=== PATIENT | male | born 1955 | race Caucasian/White ===

== ENCOUNTER 2021-05-11 06:54 | Day surgery (SDC) | payer OTHER, SELFPAY ==
--- NOTE | 2021-05-10 10:37 | HO.ANESPROP2 ---
[facility] Active Problems Active Problems: All Active Problems (Updated 11/01/20 @ 10:52 by Ruslan Pope PA-C) BPPV (benign paroxysmal positional vertigo) (Acute) Past Medical History Medical History (Updated 05/10/21 @ 10:38 by Irlanda Davis) BPPV (benign paroxysmal positional vertigo) HLD (hyperlipidemia) Family History Family History Father Diabetes Hypertension Mother Breast cancer Sister Cancer of kidney Sister Breast cancer Surgical History Surgical History History of inguinal hernia repair History of surgery S/P transurethral resection of prostate Meds Allergies Allergy/AdvReac Type Severity Reaction Status Date / Time No Known Allergies Allergy Verified 11/01/20 10:38 [No Known Allergies*] Home Medications Medication Instructions Recorded Confirmed Last Taken Type aspirin 81 mg tablet,delayed 81 mg PO DAILY 11/01/20 11/01/20 Unknown History release Exam Exam Date and Time: May 10, 2021 1037 Assessment and Plan Assessment Anesthesia Assessment: Chart Reviewed
[2021-05-11 07:15] VITALS: BMI 21.1
[2021-05-11 07:26] VITALS: BP 128/63; PULSE 66; RESP 16; TEMP 36.2; O2SAT 100
[2021-05-11] MEDS: Lactated Ringers 1,000 ML 100 ML IVCONT (07:36)
--- NOTE | 2021-05-11 07:39 | HO.ANESPROP2 ---
[facility] Past Medical History Medical History (Updated 05/10/21 @ 10:38 by Irlanda Davis) BPPV (benign paroxysmal positional vertigo) HLD (hyperlipidemia) Family History Family History Father Diabetes Hypertension Mother Breast cancer Sister Cancer of kidney Sister Breast cancer Surgical History Surgical History History of inguinal hernia repair History of surgery S/P transurethral resection of prostate Social History Social History Patient Tobacco Use Status: Former Tobacco user Tobacco use type: Cigarette Smoked in Last 30 Days: No Use of substances other than those prescribed or required for medical reasons: No Are you DNR?: No Advance Directives: No Advance Directives Information Provided: Yes Recently lost weight without trying: No Nutrition Risks: No Nutritional Risk Meds Allergies Allergy/AdvReac Type Severity Reaction Status Date / Time No Known Allergies Allergy Verified 11/01/20 10:38 [No Known Allergies*] Active Medications: Current Medications Generic Name Dose Route Start Last Admin Trade Name Freq PRN Reason Stop Dose Admin Lactated Ringer's 1,000 mls @ 100 mls/hr 05/11/21 06:30 05/11/21 07:36 Lr IVCONT 100 mls/hr .Q10H ROBERT Administration Home Medications Medication Instructions Recorded Confirmed Last Taken Type aspirin 81 mg tablet,delayed 81 mg PO DAILY 11/01/20 11/01/20 Unknown History release Exam Exam Date and Time: May 11, 2021 0739 Height,Weight and Vital Signs: Height 5 ft 7 in Weight 61.235 kg Last Vital Signs Temp 97.2 F 05/11/21 07:26 Pulse 66 05/11/21 07:26 Resp 16 05/11/21 07:26 BP 128/63 05/11/21 07:26 Pulse Ox 100 05/11/21 07:26 Airway Mallampati Class: II TM Dist: >3cm Heart: RRR Lungs: CTA
--- NOTE | 2021-05-11 08:01 | MHC.SHP ---
Pre-Procedural Eval Section A Date of Service: 05/11/21 Section B Chief Complaint: screening Details of Present Illness: see H&P no changes Relevant Family History (Specify if Yes): No Relevant Social History: None Present Medications: see Short Stay Collaborative assessment Medical History: No relevant PMH History of Previous Operations: No relevant previous surgery Allergies: Allergies Allergy/AdvReac Type Severity Reaction Status Date / Time No Known Allergies Allergy Verified 11/01/20 10:38 [No Known Allergies*] Review of Systems Sugical H&P ROS: Negative: Constitution, Cardiovascular, Respiratory, Neurological, Psychiatric, Hem-Onc, Allergic/Immunologic, Gastrointestinal, Genitourinary, Musculoskeletal, Integumentary, Endocrine and Eyes/Ears/Nose/Throat Exam Surgical H&P Exam: Normal: HEENT, Normal: Heart, Normal: Lungs, Normal: Extremities, Normal: Abdomen, Normal: Skin and Normal: Neurological Plan Diagnosis/Plan: Unchanged I have reviewed the history and physical and performed a pertinent physical examination on my patient. No changes have occurred unless specified.
[2021-05-11 08:37] VITALS: BP 100/55; PULSE 65; RESP 15; TEMP 36.6; O2SAT 96
--- NOTE | 2021-05-11 08:44 | PM.OP ---
Brief Operative Note Date of Service: 05/11/21 Pre-op diagnosis: screening Post-op diagnosis: same Procedure: colonoscopy Surgeon: Eber Edouard Anesthesia: MAC Was an Weigher And Crusher used for this Procedure?: No Estimated blood loss (mL): 0 Pathology: none sent Condition: stable Disposition: PACU
[2021-05-11 08:52] VITALS: BP 108/56; PULSE 56; RESP 18; O2SAT 97
--- NOTE | 2021-05-11 08:59 | OP_ITS ---
SURGEON: Eber Edouard MD INDICATIONS: Colon cancer screening and prior history of adenomatous colon polyps. PREOPERATIVE DIAGNOSIS: POSTOPERATIVE DIAGNOSIS: PROCEDURE PERFORMED: Colonoscopy to the terminal ileum. ESTIMATED BLOOD LOSS: COMPLICATIONS: ANESTHESIA: ASSISTANTS: SPECIMENS: MEDICATIONS: Monitored anesthesia care. DESCRIPTION OF PROCEDURE: History and physical performed. The risks and benefits of the procedure were explained to the patient. Informed consent was obtained. The patient was placed in the left lateral decubitus position. A digital rectal exam was performed and was found to be normal. The Olympus pediatric video colonoscope was introduced into the rectum and advanced to the cecum without difficulty. The cecum was identified by transillumination, palpation, and identification of ileocecal valve. Examination was performed and the scope was removed. He tolerated the procedure well and was taken to recovery area in stable condition. FINDINGS: The terminal ileum was examined and appeared normal. The visualized colonic mucosa was within normal limits without evidence of masses or ulcers. No polyps were identified. Retroflexed examination was normal. There were small internal hemorrhoids. There was mild sigmoid diverticulosis. The quality of the prep was good. IMPRESSION: Normal colonoscopy. RECOMMENDATIONS: 1. Follow up as needed. 2. Repeat colonoscopy is recommended in 10 years based on current [place] multi-society task force on colorectal cancer guidelines. MD ADI Servin/LORRAINE / [id number] MTDD
[2021-05-11 09:15] VITALS: BP 113/59; PULSE 58; RESP 16; O2SAT 97
== END 2021-05-11 09:53 | disposition home or self-care (01) ==
PROVIDERS: PCP Physician Assistant; Visit Provider Internal Medicine Gastroenterology
PROC: 0DJD8ZZ Inspection of Lower Intestinal Tract, Via Natural or Artificial Opening Endoscopic (ICD-10-PCS; CPT 45378; principal; 2021-05-11 08:10)
DX: Z12.11 Encounter for screening for malignant neoplasm of colon (principal); Z86.010 Personal history of colon polyps; K57.30 Diverticulosis of large intestine without perforation or abscess without bleeding; K64.8 Other hemorrhoids; E78.5 Hyperlipidemia, unspecified; H81.10 Benign paroxysmal vertigo, unspecified ear; Z87.891 Personal history of nicotine dependence
CPT/HCPCS: 45378

== ENCOUNTER 2021-08-27 15:22 | Outpatient (REF) | payer OTHER, SELFPAY ==
--- NOTE | ~2021-08-27 | US_ITS ---
EXAMINATION: US PELVIC LIMITED, BILATERAL INGUINAL REGIONS AND UMBILICUS CLINICAL INFORMATION: Inguinal pain and heaviness, question hernia. COMPARISON: None TECHNIQUE: Targeted ultrasound evaluation of the umbilicus and bilateral inguinal regions with patient supine, standing with and without Valsalva. FINDINGS: Postsurgical change with shadowing is seen about the left inguinal region and the umbilical region. No definite hernia is identified in either inguinal region or around the umbilicus. US/US pelvic limited IMPRESSION: No definite inguinal or umbilical hernia appreciated.
== END 2021-08-27 15:23 | disposition home or self-care (01) ==
LOC: HO.HMGCX 15:22
PROVIDERS: PCP Physician Assistant; Visit Provider Physician Assistant
DX: R10.9 Unspecified abdominal pain (principal); Z98.890 Other specified postprocedural states
CPT/HCPCS: 76857

== ENCOUNTER 2021-10-31 06:16 | Outpatient (REF) | payer OTHER, SELFPAY ==
[2021-10-31 11:48] LABS: Hematocrit 41.7 % (42.0-52.0); Hemoglobin 13.2 g/dl (14.0-18.0); Mean Corpuscular HGB Conc 31.7 g/dl (31.0-36.0); Mean Corpuscular Hemoglobin 26.6 pg (27.0-33.0); Mean Corpuscular Volume 84.1 fL (80.0-98.0); Platelet Count 259 X10*3/uL (160-400); Red Blood Count 4.96 X10*6/uL (4.60-5.80); White Blood Count 5.3 X10*3/uL (4.8-10.8)
[2021-10-31 12:16] LABS: Alanine Aminotransferase 15 U/L (0-40); Albumin Level 4.1 g/dL (3.5-5.0); Alkaline Phosphatase 54 U/L (39-117); Anion Gap 10 (12-20); Aspartate Amino Transferase 17 U/L (5-37); Bilirubin Total 0.4 mg/dL (0.0-1.0); Blood Urea Nitrogen 22 mg/dL (9-16); Calcium 9.2 mg/dL (8.4-10.2); Carbon Dioxide 26 mmol/L (22-29); Chloride 108 mmol/L (96-108); Cholesterol 184 mg/dL; Estimated Glomerular Filt Rate > 60; Glucose Fasting 98 mg/dL (60-99); HDL Cholesterol 43 mg/dL; Iron 58 mcg/dL (45-160); LDL Cholesterol Calculated 129 mg/dl; Percent Iron Saturation 15 % (15-50); Sodium 140 mmol/L (135-145); Total Iron Binding Capacity 400 mcg/dL (228-428); Total Protein 6.4 g/dL (6.5-8.0); Triglycerides 63 mg/dL; Unsaturated Iron Binding 342 ug/dL
[2021-10-31 12:19] LABS: TSH reflex Free T4 0.99 uIU/mL (0.32-4.0)
[2021-10-31 12:20] LABS: Estimated Average Glucose 105 mg/dL; Hemoglobin A1C 150.5669 umol/L; Hemoglobin A1c % 5.3 %
== END 2021-10-31 06:17 | disposition home or self-care (01) ==
LOC: HO.HMGCLDS 06:16
PROVIDERS: PCP Physician Assistant; Visit Provider Physician Assistant
DX: Z13.29 Encounter for screening for other suspected endocrine disorder (principal); Z13.1 Encounter for screening for diabetes mellitus; I10 Essential (primary) hypertension; K40.00 Bilateral inguinal hernia, with obstruction, without gangrene, not specified as recurrent; D50.9 Iron deficiency anemia, unspecified; R42 Dizziness and giddiness
CPT/HCPCS: 36415; 80053; 80061; 83036; 83540; 84443; 85027

== ENCOUNTER 2021-11-08 16:01 | Outpatient (REF) | payer OTHER, SELFPAY ==
--- NOTE | ~2021-11-08 | XR_ITS ---
EXAMINATION: XR CHEST CLINICAL INFORMATION: Shortness of breath COMPARISON: August 24, 2013 TECHNIQUE: 2 views of the chest were obtained. FINDINGS: No significant abnormality is noted involving the heart, lungs, mediastinum, bony thorax or soft tissues. XR/XR chest 2V IMPRESSION: No acute disease.
== END 2021-11-08 16:02 | disposition home or self-care (01) ==
LOC: HO.HMGCX 16:01
PROVIDERS: PCP Physician Assistant; Visit Provider Physician Assistant
DX: R06.02 Shortness of breath (principal)
CPT/HCPCS: 71046

== ENCOUNTER → 2021-11-29 07:47 | Outpatient (REF) | payer OTHER, SELFPAY ==
--- NOTE | 2021-11-29 07:51 | CA_ITS ---
Acquisition Time: 2021-11-29 07:50:25 Total Exercise Time: 00:05:00 Test Indications: SOB, DIZZINESS Medications: SEE CHART Protocol: KIRSTIE Max HR: 160 BPM 102% of Pred: 156 BPM Max BP: 146/078 mmHG Max Work Load: 7.0 METS Exercise stress test with exercise 5 min of Kirstie protocol, with report of moderate shortness of breath, no chest discomfort, with isolated PACs and one PVC, with normotensive response to exercise, without EKG changes meeting criteria for ischemia. In recovery his breathing quickly improved with rest. Test reviewed with Dr Gandhi. Referred By: Ruslan Pope Overread By: ORION INTERIANO
== END ==
LOC: HO.CARD 07:47
PROVIDERS: Visit Provider Physician Assistant
DX: R06.02 Shortness of breath (principal)
CPT/HCPCS: 93017

== ENCOUNTER 2022-01-10 15:43 | Outpatient (REF) | payer OTHER, SELFPAY ==
--- NOTE | 2022-01-10 17:18 | PFT_ITS ---
FLOWS: FEV1 113% of predicted at 3.50 L. FVC 101% of predicted at 4.20 L. FEV1 to FVC ratio of 0.83. No bronchodilator response except in small to medium airways. LUNG VOLUMES: Total lung capacity 97% of predicted at 6.22 L. Residual volume 94% of predicted at 2.04 L. Slow vital capacity 98% of predicted at 4.18 L. Expiratory reserve volume 94% of predicted at 1.08 L. Diffusion capacity is normal. In comparison to pulmonary function test from August of 2013, FEV1 has increased by 0.32 L; FVC has increased by 0.55 L; total lung capacity has been without significant changes; residual volume has decreased by 0.22 L; slow vital capacity has increased by 0.20 L; expiratory reserve volume has increased by 0.65 L. IMPRESSION: No obstructive or restrictive ventilatory defect. No bronchodilator response except in small to medium airways. MD SOFIA Zabala/MODL / [id number]
== END 2022-01-10 15:44 | disposition home or self-care (01) ==
LOC: HO.RESP 15:43
PROVIDERS: PCP Physician Assistant; Visit Provider Physician Assistant
DX: R06.02 Shortness of breath (principal)
CPT/HCPCS: 94060; 94727; 94729

== ENCOUNTER 2022-05-22 08:37 | Outpatient (REF) | payer OTHER, SELFPAY ==
--- NOTE | ~2022-05-22 | XR_ITS ---
EXAMINATION: XR FOOT, RIGHT CLINICAL INFORMATION: Right foot contusion. COMPARISON: None TECHNIQUE: 3 views of the right foot. FINDINGS: Bones have normal alignment throughout the foot. On the PA view, a very small calcific density projects along medial cortex of the 5th proximal phalanx. Since patient's pain is reportedly in this area, this is suspicious for subtle fracture. There is no convincing fracture on the other radiographic projections. Otherwise, no suspicious osseous findings. XR/XR foot RT min 3V IMPRESSION: Subtle fracture of the proximal metaphysis of the 5th proximal phalanx is suspected.
== END 2022-05-22 08:38 | disposition home or self-care (01) ==
LOC: HO.HMGCX 08:37
PROVIDERS: PCP Physician Assistant; Visit Provider Internal Medicine
DX: S90.31XA Contusion of right foot, initial encounter (principal)
CPT/HCPCS: 73630

== ENCOUNTER → 2023-06-02 13:53 | Outpatient (REF) | payer OTHER, SELFPAY ==
--- NOTE | 2023-06-02 13:55 | CA_ITS ---
Transthoracic Echocardiogram Amended Patient (Last, First, Middle): Meliton Velázquez R Gender: Male Date of : 1955 Age: 67 Procedure Date: 06/02/2023 Procedure Type: Transthoracic Echocardiogram Location: OP Height: 170.18 cm Weight: 61.24 kg BSA: 1.71 m2 Heart Rate: bpm BP: 122 / 80 mmHg Can Labeler: Referring MD: Abundio Tobias MD Quality Control Lab Tech: James Wheeler MD Symptoms: R06.09 - Other forms of dyspnea Study Quality: Good ECG Rhythm: Sinus Conclusions: - 1. Normal LV systolic function with LV ejection fraction of 60 65% with impaired relaxation filling pattern 2. Mildly dilated left atrium 3. Mild mitral regurgitation 4. Normal RV systolic pressure 5. No gross pericardial effusion Findings Left Ventricle Normal left ventricular size, thickness, and systolic function. The visually estimated ejection fraction is between 60-65%. Spectral Doppler is indicative of an impaired relaxation filling pattern. E/E prime ratio is between 8 and 15 consistent with indeterminate filling pressures. Peak GLS is -18.7%, within normal limits. Right Ventricle Normal right ventricular cavity size and systolic function. Atria The left atrium is mildly dilated. There is no evidence of interatrial shunt. The right atrium is normal in size. Aortic Valve Normal aortic valve structure and function. There is no aortic valve stenosis. There is no aortic valve regurgitation. Mitral Valve Normal mitral valve structure and function. There is mild mitral valve regurgitation. There is no mitral valve stenosis. Pulmonic Valve The pulmonic valve is likely normal. There is trace pulmonic valve regurgitation. Tricuspid Valve Normal tricuspid valve structure. There is trace tricuspid valve regurgitation. The right ventricular systolic pressure is normal. The right ventricular systolic pressure is 23 mmHg. Normal right atrial pressure. There is no evidence of pulmonary hypertension. Great Vessels All visible segments of the aorta are normal in size. The pulmonary artery was not well visualized. Venous The inferior vena cava is normal in size and collapses greater than 50% with inspiration. Pericardium/Pleural There is no evidence of pericardial effusion. Prior Study Comparison No prior study available for comparison. Measurements 2D Linear Measurements IVSd: 1.17 0.6-0.9/0.6-1.0 cm LVIDd: 4.53 3.9-5.3/4.2-5.9 cm LVIDd Index: 2.65 2.4-3.2/2.2-3.1 cm/m2 LVIDs: 2.52 2.0-3.6 cm LVPWd: 1.03 0.7-1.1 cm Ao Root: 3.50 2.1-3.5 cm LA Diam: 3.60 2.7-3.8/3.0-4.0 cm LAIDs Index: 2.11 1.5-2.3 cm/m2 LV Mass: 220.34 67-162/88-224 g LV Mass Index: 128.85 43-95/49-115 g/m2 LVOT Diam: 2.10 3.0+(-)1.3 cm 2D Volumes LA Vol: 31.90 Mitral Valve MV Pk E: 0.44 MV PK A: 0.66 MV Decel Time: 267.00 E/A: 0.70 E'Lateral: 7.07 E'Medial: 4.03 E/E' Med: 10.90 E/E' Lat: 6.20 PHT: 78.00 MVA PHT: 2.82 Decel [place]: 1.65 Aortic Valve AoV Pk Adam: 1.26 AoV Mn Adam: 0.84 AoV VTI: 0.26 AoV Pk Grad: 6.00 Aov Mn Grad: 3.00 NICHOLE Cont.VTI: 2.51 LVOT LVOT Pk Adam: 1.08 LVOT Mn Adam: 0.65 LVOT VTI: 0.19 LVOT Pk Grad: 5.00 LVOT Mn Grad: 2.00 LVOT Diam: 2.10 LVOT Area: 3.46 Diastolic Function MV Pk E: 0.44 MV Pk A: 0.66 E/A: 0.70 E'Medial: 4.03 E/E' Med: 10.90 E' Laterial: 7.07 E/E' Lat: 6.20 Right Ventricle TAPSE (mm): 20.00 TVS' Adam: 13.00 Tricuspid Valve TR Pk Adam: 2.24 TR Pk Grad: 20.00 RA Press: 3.00 RVSP: 23.00 Great Vessels Aorta Ao Root-2D: 3.50 2.0-3.7 cm Ao Asc: 3.00 2.1-3.4 cm Pulmonary Valve PV Pk Adam: 1.05 Peak PV Grad: 4.00 Updated in Other Vendor System with Status of Final James Wheeler MD electronically signed on 06/06/2023 3:17:10 PM with status of Final
--- NOTE | 2023-06-02 13:55 | HM_ITS ---
Conclusion: 1. Patient was monitored for total period of 2 days and 14 hours 2. Baseline was normal sinus rhythm with average heart rate of 72 beats per minute with frequent sinus bradycardia noted with 43% of time heart rate below 60 beats per minute 3. No significant pauses or marked sinus bradycardia noted 4. Rare ectopy noted 5. No patient reported events MTDD
== END ==
LOC: HO.CARD 13:53
PROVIDERS: PCP Physician Assistant; Visit Provider Internal Medicine
DX: R55 Syncope and collapse (principal); R06.09 Other forms of dyspnea; R00.0 Tachycardia, unspecified
CPT/HCPCS: 93242; 93306; 93356

== ENCOUNTER → 2023-06-02 13:55 | Outpatient (BNV) | payer OTHER, SELFPAY | PROVIDERS: PCP Physician Assistant; Visit Provider Internal Medicine Cardiovascular Disease | DX: R00.1 Bradycardia, unspecified (principal) | CPT/HCPCS: 93244; 93306 ==

== ENCOUNTER 2023-06-18 15:24 | Outpatient (AMB) | payer OTHER, SELFPAY ==
[2023-06-18 15:28] VITALS: BP 114/62; PULSE 83; O2SAT 98; BMI 21.5
--- NOTE | 2023-06-18 15:28 | A.OFFPC_ITS ---
Vital Signs 06/18/23 15:28 Height 5 ft 7 in Weight 137 lb BMI 21.5 BP 114/62 Blood Pressure Location Lt brachial Position Sitting Pulse 83 Pulse Source Pulse Oximeter Pulse Oximetry (%) 98 Oxygen Delivery Method Room Air Intake Visit Reasons: Follow up on SOB-Has followed up with PCP before Allergies No Known Allergies [No Known Allergies*] Allergy (Verified 06/18/23 15:33) Medication List - Last Reconciled 06/18/23 by Ruslan Pope PA-C No Known Home Meds Tobacco use date assessed: 05/02/23 Fall risk assessment: No Falls in past year Last assessed Fall Risk: 06/18/23 Dental Screening Dental Screen Date: 06/18/23 Did you have a dental visit in the last 12 months?: No Did you have a dental problem in the last 6 months where you did not have access to dental care?: No Was dental information given to patient?: No HPI Follow up on SOB-Has followed up with PCP before HPI Details Patient is a 67-year-old male here today for a follow-up visit. Patient recently seen at the ER for acute syncopal episode which was thought to be dehydration. Follow-up with PCP office here and was sent for Holter monitor which did not show any arrhythmia, also sent for echocardiogram which did not show any severe structural heart disease. Does report at times having shortness of breath. Will send for pulmonary function test though like it did not show any significant obstructive or restri ctive pulmonary disease. Otherwise has not had any further episodes of presyncope. He continues to report difficulties with sleeping and has tried many different sleeping medications without much relief. He does report daytime somnolence and feeling fatigued on a daily basis. [facility] Medical History BPPV (benign paroxysmal positional vertigo) HLD (hyperlipidemia) Surgical History History of inguinal hernia repair History of surgery S/P transurethral resection of prostate Family History Father Diabetes Hypertension Mother Lung cancer Sister Cancer of kidney Lung cancer Sister Breast cancer Social History Housing: House Patient Tobacco Use Status: Former Tobacco user Tobacco use type: Cigarette e-Cigarette/Vaping Use: Never Used Current occupational status: employed Cognitive needs: No Hearing needs: No Vision needs: No Questionnaire PHQ-9 Over the last 2 weeks, how often have you been bothered by any of the following problems? 1. Little interest or pleasure in doing things: not at all 2. Feeling down, depressed, or hopeless: not at all 3. Trouble falling or staying asleep, or sleeping too much: not at all 4. Feeling tired or having little energy: not at all 5. Poor appetite or overeating: not at all 6. Feeling bad about yourself - or that you are a failure or have let yourself or your family down: not at all 7. Trouble concentrating on things, such as reading the newspaper or watching television: not at all 8. Moving or speaking so slowly that other people could have noticed. Or the opposite - being so fidgety or restless that you have been moving around a lot more than usual: not at all 9. Thoughts that you would be better off or of hurting yourself in some way: not at all Total score: 0 Depression Screening Interpretation: Negative 12702 - PHQ-9 Billing: Yes Source: Developed by Drs. Trenton Carey, Eris Jean Baptiste and colleagues, with an educational alexis from [employer]. Thrive Questionnaire Date Thrive assessed: 05/02/23 AUDIT C Alcohol Use Questionnaire (AUDIT-C) 1. How often do you have a drink containing alcohol?: Never Total Score: 0 Score Reviewed/Action Taken: Yes JOHNNIE-7 AMB Questionnaire JOHNNIE-7 Date JOHNNIE - 7 assessed: 05/02/23 Source: Developed by Deirdre Toro Kurt Kroenke and colleagues, with an educational alexis from [employer]. Review of Systems Const Reports difficulty sleeping, Reports fatigue and Denies headache(s) Eyes Denies loss of vision ENT Denies vertigo, Denies dizziness, Denies headache(s) and Denies sore throat Card Denies chest pain, Denies leg edema and Denies lightheadedness Resp Denies cough, Denies hemoptysis and Denies wheezing GI Denies abdominal pain, Denies melena, Denies constipation, Denies diarrhea and Denies vomiting Denies dysuria, Denies urinary frequency and Denies urinary urgency Musc Denies arthralgias, Denies joint swelling, Denies numbness and Denies tingling Neuro Denies Abnormal speech present, Denies behavioral changes, Denies vertigo, Denies dizziness, Denies headache(s), Denies loss of vision, Denies memory loss, Denies numbness and Denies tingling Psych Denies anxiety, Denies behavioral changes, Denies depression, Denies memory loss and Denies panic attacks Endo Reports fatigue Leander/Lymph Denies easy bleeding and Denies easy bruising Aller/Immun Denies wheezing Physical exam (Primary Care) Vital Signs: Last Vital Signs Pulse 83 06/18/23 15:28 BP 114/62 06/18/23 15:28 Pulse Ox 98 06/18/23 15:28 Oxygen Delivery Method Room Air 06/18/23 15:28 BMI result Body Mass Index 21.5 Tobacco/Smoking Status: Tobacco use Status Tobacco use date assessed 05/02/23 06/18/23 15:32 Patient Tobacco Use Status Former Tobacco user 06/18/23 15:32 Tobacco use type Cigarette 06/18/23 15:32 e-Cigarette/Vaping Use Never Used 06/18/23 15:32 PHQ-9: PHQ-9 Score PHQ-9: Total score 0 06/18/23 15:36 Depression Screening Interpretation: Negative Thrive Assessment: Date of Thrive Assessment Date Thrive assessed 05/02/23 06/18/23 15:32 Const General: healthy appearing, no acute distress, alert and awake Nutritional Appearance: well nourished Orientation/consciousness: oriented to person, oriented to place and oriented to time HENVT Ears: TM's normal bilaterally General nose exam: Normal nasal mucous membranes and turbinates present Eyes Conjunctivae: conjunctivae normal Sclerae: sclerae normal Pupils: Equal, round and reactive pupils present Neck Neck: Yes no lymphadenopathy and Yes no JVD Thyroid: Thyroid normal Carotids: no bruits Resp Effort & Inspection: normal respiratory effort and not tachypneic Auscultation: no crackles, no rales, no rhonchi and no wheezes Cardio Rate: regular rate Rhythm: regular rhythm Heart sounds: no murmurs and normal S1 and S2 GI Palpation (GI): Soft to palpation, nontender, no hepatomegaly and no splenomegaly Auscultation: normal bowel sounds Skin General skin exam: no rashes or lesions noted and dry skin Neuro General: oriented to person, oriented to place and oriented to time Cranial nerves: Yes Equal, round and reactive pupils present Speech: No Abnormal speech present Gait exam (Neuro): Normal gait present Motor exam (neuro): no tremor noted Extrem Right upper extremity: full ROM Left upper extremity: full ROM Right lower extremity: full ROM; no edema Left lower extremity: full ROM; no edema Psych Mental Status: mental status grossly normal Speech and movement: Normal speech and movement present Affect: normal affect Attitude: cooperative Thought process: Normal thought process present Assessment and Plan Assessment & Plan (1) Fatigue: Code(s): R53.83 - Other fatigue Qualifiers: Fatigue type: unspecified Qualified Code(s): R53.83 - Other fatigue Plan: Patient has chronic fatigue, labs have been fairly stable with the exception of a mild anemia. We did discuss possibility of seeing a sleep specialist as he reports sleeping issues for many years. Has tried many different sleeping aids though have not been effective. Considering a sleep study. Will check iron and B12 levels. (2) Pre-syncope: Code(s): R55 - Syncope and collapse Plan: Patient's episode of presyncope unclear at this time the likely related to dehydration. Its thus far cardiac workup has been unrevealing. Will send for another cardiac stress test which has been done previously in 2021. Will also send for baseline labs to evaluate for any abnormality (3) Screening for diabetes mellitus (DM): Code(s): Z13.1 - Encounter for screening for diabetes mellitus Orders: Orders Vitamin B12 and Folate 06/18/23 E53.8 - Deficiency of other specified B group vitamins, R53.83 - Other fatigue TSH reflex Free T4 06/18/23 R53.83 - Other fatigue CA stress test 06/18/23 R55 - Syncope and collapse Comprehensive [place]. Panel Fast 06/18/23 Z13.1 - Encounter for screening for diabetes mellitus Ferritin 06/18/23 R53.83 - Other fatigue Coding Level of Care Code Est Pt Level 4 (09685) Diagnoses Fatigue R5. Fatigue type: unspecified Pre-syncope R55 Screening for diabetes mellitus (DM) Z13.1
== END 2023-06-18 15:56 | disposition home or self-care (01) ==
PROVIDERS: PCP Physician Assistant; Visit Provider Physician Assistant
DX: R53.83 Other fatigue (principal); R55 Syncope and collapse; Z13.1 Encounter for screening for diabetes mellitus
CPT/HCPCS: 99214

== ENCOUNTER → 2023-07-03 07:46 | Outpatient (REF) | payer OTHER, SELFPAY ==
--- NOTE | 2023-07-03 07:48 | CA_ITS ---
Acquisition Time: 2023-07-03 08:05:23 Total Exercise Time: 00:06:37 Test Indications: SOB Medications: SEE H Protocol: KIRSTIE Max HR: 162 BPM 104% of Pred: 155 BPM Max BP: 154/070 mmHG Max Work Load: 7.9 METS Exercise stress test exercise 6 min 37 sec of Kirstie protocol achieving 104% MPHR, without anginal symptoms, with isolated PVC, with normotensive response to exercise, without EKG changes.Test reviewed with Dr. Shah. Referred By: Ruslan Pope Overread By: Etta Roger
[2023-07-03 09:47] LABS: Alanine Aminotransferase 12 U/L (0-40); Albumin Level 4.1 g/dL (3.5-5.0); Alkaline Phosphatase 56 U/L (39-117); Anion Gap 10 (12-20); Aspartate Amino Transferase 21 U/L (5-37); Bilirubin Total 0.4 mg/dL (0.0-1.0); Blood Urea Nitrogen 22 mg/dL (9-16); Calcium 9.5 mg/dL (8.4-10.2); Carbon Dioxide 27 mmol/L (22-29); Chloride 107 mmol/L (96-108); Estimated Glomerular Filt Rate > 60; Glucose Fasting 85 mg/dL (60-99); Potassium 4.4 mmol/L (3.3-5.1); Sodium 140 mmol/L (135-145)
[2023-07-03 10:07] LABS: Vitamin B12 224 pg/mL (200-900)
[2023-07-03 10:12] LABS: Ferritin 25 ng/mL (20-250); TSH reflex Free T4 0.58 uIU/mL (0.32-4.0)
== END ==
LOC: HO.CARD 07:46
PROVIDERS: PCP Physician Assistant; Visit Provider Physician Assistant
DX: R55 Syncope and collapse (principal); R06.02 Shortness of breath; R53.83 Other fatigue; E53.8 Deficiency of other specified B group vitamins; Z13.1 Encounter for screening for diabetes mellitus
CPT/HCPCS: 36415; 80053; 82607; 82728; 82746; 84443; 93017

== ENCOUNTER → 2023-07-03 07:48 | Outpatient (BNV) | payer OTHER, SELFPAY | PROVIDERS: PCP Physician Assistant; Visit Provider Nurse Practitioner | DX: R06.02 Shortness of breath (principal) | CPT/HCPCS: 93016; 93018 ==

== ENCOUNTER 2023-07-30 15:34 | Outpatient (AMB) | payer OTHER, SELFPAY ==
[2023-07-30 15:38] VITALS: BP 102/60; PULSE 75; O2SAT 96; BMI 22.3
--- NOTE | 2023-07-30 15:38 | A.OFFPC_ITS ---
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: No Accompanied by: Self / Same As Patient Allergies No Known Allergies [No Known Allergies*] Allergy (Verified 07/30/23 16:07) Medication List - Last Reconciled 07/30/23 by Ruslan Pope PA-C No Known Home Meds Tobacco use date assessed: 05/02/23 Fall risk assessment: No Falls in past year Last assessed Fall Risk: 07/30/23 Dental Screening Dental Screen Date: 07/30/23 Did you have a dental visit in the last 12 months?: No Did you have a dental problem in the last 6 months where you did not have access to dental care?: No Was dental information given to patient?: Patient declined HPI Follow-up labs and cardiac stress testing HPI Details Patient is a 67-year-old male here today for a follow-up visit. Last visit we discussed his syncopal episode he had a work resulting in ER visit. He has been sent for cardiac stress test in labs which were both unremarkable. He has not had any recurrent syncopal episodes. Has been drinking more fluids with electrolytes which she felt he may have been dehydrated. Otherwise he does report some chronic fatigue though attributes this to not sleeping well at night. He does work 6 days a week. Otherwise reviewed labs and noted a slight low hemoglobin and October of 2022. Will recheck CBC and iron. Laboratory Tests 10/31/21 06:22 Hgb 13.2 L Hct 41.7 L PFSH Medical History (Updated 07/30/23 @ 16:19 by Ruslan Pope PA-C) Tachycardia Bilateral inguinal hernia HLD (hyperlipidemia) BPPV (benign paroxysmal positional vertigo) Surgical History History of surgery S/P transurethral resection of prostate History of inguinal hernia repair Family History Father Diabetes Hypertension Mother Lung cancer Sister Cancer of kidney Lung cancer Sister Breast cancer Social History (Reviewed 07/30/23 @ 15:51 by DOMINGO Landaverde Housing: House Patient Tobacco Use Status: Former Tobacco user Tobacco use type: Cigarette e-Cigarette/Vaping Use: Never Used Current occupational status: employed Cognitive needs: No Hearing needs: No Vision needs: No Questionnaire Thrive Questionnaire Date Thrive assessed: 05/02/23 JOHNNIE-7 AMB Questionnaire JOHNNIE-7 Date JOHNNIE - 7 assessed: 05/02/23 Source: Developed by Drs. Trenton Carey, Deirdre Casillas, Eris Martin and colleagues, with an educational alexis from [employer]. Review of Systems Const Denies headache(s) Eyes Denies loss of vision ENT Denies vertigo, Denies dizziness, Denies headache(s) and Denies sore throat Card Denies chest pain, Denies leg edema and Denies lightheadedness Resp Denies cough, Denies hemoptysis and Denies wheezing GI Denies abdominal pain, Denies melena, Denies constipation, Denies diarrhea and Denies vomiting Denies dysuria, Denies urinary frequency and Denies urinary urgency Musc Denies arthralgias, Denies joint swelling, Denies numbness and Denies tingling Neuro Denies Abnormal speech present, Denies behavioral changes, Denies vertigo, Denies dizziness, Denies headache(s), Denies loss of vision, Denies memory loss, Denies numbness and Denies tingling Psych Denies anxiety, Denies behavioral changes, Denies depression, Denies memory loss and Denies panic attacks Leander/Lymph Denies easy bleeding and Denies easy bruising Aller/Immun Denies wheezing Physical exam (Primary Care) Vital Signs: Last Vital Signs Pulse 75 07/30/23 15:38 BP 102/60 07/30/23 15:38 Pulse Ox 96 07/30/23 15:38 Oxygen Delivery Method Room Air 07/30/23 15:38 BMI result Body Mass Index 22.3 Tobacco/Smoking Status: Tobacco use Status Tobacco use date assessed 05/02/23 07/30/23 15:41 Patient Tobacco Use Status Former Tobacco user 07/30/23 15:41 Tobacco use type Cigarette 07/30/23 15:41 e-Cigarette/Vaping Use Never Used 07/30/23 15:41 Thrive Assessment: Date of Thrive Assessment Date Thrive assessed 05/02/23 07/30/23 15:41 Const General: healthy appearing, no acute distress, alert and awake Nutritional Appearance: well nourished Orientation/consciousness: oriented to person, oriented to place and oriented to time HENMT Ears: TM's normal bilaterally General nose exam: Normal nasal mucous membranes and turbinates present Eyes Conjunctivae: conjunctivae normal Sclerae: sclerae normal Pupils: Equal, round and reactive pupils present Neck Neck: Yes no lymphadenopathy and Yes no JVD Thyroid: Thyroid normal Carotids: no bruits Resp Effort & Inspection: normal respiratory effort and not tachypneic Auscultation: no crackles, no rales, no rhonchi and no wheezes Cardio Rate: regular rate Rhythm: regular rhythm Heart sounds: no murmurs and normal S1 and S2 GI Palpation (GI): Soft to palpation, nontender, no hepatomegaly and no splenomegaly Auscultation: normal bowel sounds Skin General skin exam: no rashes or lesions noted and dry skin Neuro General: oriented to person, oriented to place and oriented to time Cranial nerves: Yes Equal, round and reactive pupils present Speech: No Abnormal speech present Gait exam (Neuro): Normal gait present Motor exam (neuro): no tremor noted Extrem Right upper extremity: full ROM Left upper extremity: full ROM Right lower extremity: full ROM; no edema Left lower extremity: full ROM; no edema Psych Mental Status: mental status grossly normal Speech and movement: Normal speech and movement present Affect: normal affect Attitude: cooperative Thought process: Normal thought process present Assessment and Plan Assessment & Plan (1) Anemia: Code(s): D64.9 - Anemia, unspecified Qualifiers: Anemia type: unspecified type Qualified Code(s): D64.9 - Anemia, unspecified Plan: Noted slight anemia on previous labs. Will recheck a CBC and iron studies. (2) Pre-syncope: Code(s): R55 - Syncope and collapse Plan: As per HPI patient did have a presyncopal episode while at work. Likely related to dehydration. Labs and cardiac stress test were unremarkable. Orders: Orders Complete Blood Count no Diff Today D64.9 - Anemia, unspecified IRON PROFILE Today D50.9 - Iron deficiency anemia, unspecified, D64.9 - Anemia, unspecified Coding Level of Care Code Est Pt Level 3 (32872) Diagnoses Anemia, unspecified type D64.9 Anemia type: unspecified type Pre-syncope R55
== END 2023-07-30 16:17 | disposition home or self-care (01) ==
PROVIDERS: PCP Physician Assistant; Visit Provider Physician Assistant
DX: D64.9 Anemia, unspecified (principal); R55 Syncope and collapse
CPT/HCPCS: 99213

== ENCOUNTER 2023-08-02 10:23 | Outpatient (AMB) | payer OTHER, SELFPAY ==
--- NOTE | 2023-08-02 11:53 | AM.OFFWIN_ITS ---
Intake Vital Signs 08/02/23 11:54 Height 5 ft 7 in Weight 142 lb BMI 22.2 BP 110/70 Blood Pressure Location Rt brachial Position Sitting Pulse 60 Pulse Source Pulse Oximeter Temp 97.6 F Temp Source Temporal Artery Scan Pulse Oximetry (%) 97 Intake Visit Reasons: EST/blood in urine/right side pain Intake Note: pt is here for c/o of blood in urine and right side pain Patient Tobacco Use Status: Former Tobacco user Allergies No Known Allergies [No Known Allergies*] Allergy (Verified 08/02/23 11:55) Do you need a note to return to daycare/school/sports/work: Yes PFSH Medical History Tachycardia Bilateral inguinal hernia HLD (hyperlipidemia) BPPV (benign paroxysmal positional vertigo) Surgical History History of surgery S/P transurethral resection of prostate History of inguinal hernia repair Family History Father Diabetes Hypertension Mother Lung cancer Sister Cancer of kidney Lung cancer Sister Breast cancer Social History Housing: House Patient Tobacco Use Status: Former Tobacco user Tobacco use type: Cigarette e-Cigarette/Vaping Use: Never Used Current occupational status: employed Cognitive needs: No Hearing needs: No Vision needs: No Physical Exam Vital Signs: Last Vital Signs Temp 97.6 F 08/02/23 11:54 Pulse 60 08/02/23 11:54 BP 110/70 08/02/23 11:54 Pulse Ox 97 08/02/23 11:54 BMI result Body Mass Index 22.2 Results AMB Urinalysis, Automated UA Leukoctes 0 Zuleyma/uL Last Edit by Brayan Aguilar CMA on 08/02/23 12:05 UA Nitrite Negative Last Edit by Brayan Aguilar CMA on 08/02/23 12:05 UA Urobilinogen 0.2 mg/dL Last Edit by Brayan Aguilar CMA on 08/02/23 12 :05 UA Protein 0 mg/dL Last Edit by Brayan Aguilar CMA on 08/02/23 12:05 UA pH 6.0 Last Edit by Brayan Aguilar CMA on 08/02/23 12:05 UA Blood 200 Ryan/uL Last Edit by Brayan Aguilar CMA on 08/02/23 12:05 UA Specific [place] 1.015 Last Edit by Brayan Aguilar CMA on 08/02/23 12:05 UA Ketone Negative Last Edit by Brayan Aguilar CMA on 08/02/23 12:05 UA Bilirubin 0 mg/dL Last Edit by Brayan Aguilar CMA on 08/02/23 12:05 UA Glucose 0 mg/dL Last Edit by Brayan Aguilar CMA on 08/02/23 12:05 Results Reviewed Results Reviewed: Laboratory Last Values Urine pH (Auto) 6.0 08/02/23 12:04 Specific [place] (Auto) 1.015 08/02/23 12:04 Urine Protein (Auto) 0 mg/dL 08/02/23 12:04 Glucose (UA)(Auto) 0 mg/dL 08/02/23 12:04 Urine Ketones (Auto) Negative 08/02/23 12:04 Urine Blood (Auto) 200 Ryan/uL 08/02/23 12:04 Urine Nitrite (Auto) Negative 08/02/23 12:04 Urine Bilirubin (Auto) 0 mg/dL 08/02/23 12:04 Urine Urobilinogen (Auto) 0.2 mg/dL 08/02/23 12:04 Leukocyte Esterase (Auto) 0 Zuleyma/uL 08/02/23 12:04 Assessment & Plan Assessment & Plan (1) Hematuria: Code(s): R31.9 - Hematuria, unspecified Plan: Patient is a 67-year-old male with a history of known nephrolithiasis who comes to the walk-in clinic complaining of having had an episode of gross hematuria along with right flank discomfort that has resolved as of today. His urine is remarkable only for microscopic hematuria, with negative nitrates, leukocytes or ketones. Other than the episode of bleeding earlier, he had no gross hematuria in his urine on exam. He is asymptomatic otherwise, and denies fever or chills, abdominal pain, flank or back pain, nausea vomiting or diarrhea, weakness or dizziness, malaise or myalgias, anorexia, chest pain or shortness of breath, or other significant associated symptoms. He had a recent workup by his PCP CHAYO [place] that showed persistent small stones. He presents today with vitals stable, a nontoxic appearance, and asymptomatic. I told him that likely he passed a small stone but that I could not do further imaging at the walk-in on a weekend to verify this however. He does have an outstanding CBC that his PCP had ordered recently, and I advised that he get this done today to see if he has an elevated white blood count. I also added a complete metabolic profile to help with further evaluation and management of this. Pending these results. I told him that he should follow up next week with his PCP to let him know that he had had this episode, and to determine further management. In the meantime, we discussed that he needs to go to the emergency department for a likely CT scan if his symptoms were to return. He understood and agreed with this plan. Orders: Orders Comprehensive Met. Panel Today R31.9 - Hematuria, unspecified AMB Urinalysis Automated Today Z13.9 - Encounter for screening, unspecified UA CC w/rflx Micro + Cult Today R30.0 - Dysuria Coding Level of Care Code Est Pt Level 4 (92531) Diagnoses Hematuria R31.9
[2023-08-02 11:54] VITALS: BP 110/70; PULSE 60; TEMP 36.4; O2SAT 97; BMI 22.2
== END 2023-08-02 12:57 | disposition home or self-care (01) ==
PROVIDERS: PCP Physician Assistant; Visit Provider Physician Assistant Medical
DX: R31.9 Hematuria, unspecified (principal)
CPT/HCPCS: 81003; 99214

== ENCOUNTER 2023-08-02 13:25 | Outpatient (REF) | payer OTHER, SELFPAY ==
[2023-08-02 15:44] LABS: Hematocrit 43.4 % (42.0-52.0); Hemoglobin 14.3 g/dl (14.0-18.0); Mean Corpuscular HGB Conc 32.9 g/dl (31.0-36.0); Mean Corpuscular Hemoglobin 28.2 pg (27.0-33.0); Mean Corpuscular Volume 85.6 fL (80.0-98.0); Mean Platelet Volume 10.7 fL (9.4-12.4); Platelet Count 252 X10*3/uL (160-400); Red Blood Count 5.07 X10*6/uL (4.60-5.80); Red Cell Distribution Width 14.3 % (11.0-16.0); White Blood Count 6.2 X10*3/uL (4.8-10.8)
[2023-08-02 15:54] LABS: Alanine Aminotransferase 12 U/L (0-40); Albumin Level 4.2 g/dL (3.5-5.0); Alkaline Phosphatase 60 U/L (39-117); Anion Gap 13 (12-20); Aspartate Amino Transferase 18 U/L (5-37); Bilirubin Total 0.6 mg/dL (0.0-1.0); Blood Urea Nitrogen 16 mg/dL (9-16); Calcium 9.3 mg/dL (8.4-10.2); Carbon Dioxide 25 mmol/L (22-29); Chloride 106 mmol/L (96-108); Estimated Glomerular Filt Rate > 60; Glucose Random 72 mg/dL (60-115); Iron 88 mcg/dL (45-160); Percent Iron Saturation 27 % (15-50); Potassium 3.8 mmol/L (3.3-5.1); Sodium 140 mmol/L (135-145); Total Iron Binding Capacity 327 mcg/dL (228-428); Unsaturated Iron Binding 239 ug/dL
== END 2023-08-02 13:26 | disposition home or self-care (01) ==
LOC: HO.HMGCLDS 13:25
PROVIDERS: Absent Provider Physician Assistant Medical; PCP Physician Assistant; Visit Provider Physician Assistant
DX: D64.9 Anemia, unspecified (principal); D50.9 Iron deficiency anemia, unspecified; R31.9 Hematuria, unspecified; Z13.9 Encounter for screening, unspecified
CPT/HCPCS: 36415; 80053; 83540; 85027

== ENCOUNTER 2023-12-03 15:31 | Outpatient (AMB) | payer BC, SELFPAY ==
[2023-12-03 15:35] VITALS: BP 110/72; PULSE 62; O2SAT 98; BMI 21.9
--- NOTE | 2023-12-03 15:35 | MHC.PC.OV ---
Vital Signs 12/03/23 15:35 Height 5 ft 7 in Weight 140 lb 0.4 oz BMI 21.9 BP 110/72 Blood Pressure Location Lt brachial Position Sitting Pulse 62 Pulse Source Pulse Oximeter Pulse Oximetry (%) 98 Oxygen Delivery Method Room Air Intake Visit Reasons: Annual Exam Intake Note: Patient is here today for a physical. Juice Standardizer Required: No Allergies No Known Allergies [No Known Allergies*] Allergy (Verified 12/03/23 15:58) Medication List - Last Reconciled 12/03/23 by Ruslan Pope PA-C No Known Home Meds Tobacco use date assessed: 12/03/23 Fall risk assessment: No Falls in past year Last assessed Fall Risk: 12/03/23 Dental Screening Dental Screen Date: 12/03/23 Did you have a dental visit in the last 12 months?: No Did you have a dental problem in the last 6 months where you did not have access to dental care?: No HPI Annual Exam HPI Details Patient is a 68-year-old male here today for routine annual physical. Patient has a past medical history significant for insomnia and intermittent episodes of vertigo .. .. insomnia : Continues to have trouble sleeping. Has tried melatonin, hydroxyzine and [id number] sleeping aids in the past though are not effective. Has tried CBD and THC though were not effective either. Colon cancer screening: Had colonoscopy in 2021 which was normal and repeat in 10 years. Vaccines: Up-to-date with COVID vaccine, flu vaccine and tetanus vaccine. Needs pneumonia vaccine though declines today [facility] Medical History (Updated 12/04/23 @ 07:41 by Ruslan Pope PA-C) Anemia Fatigue Tachycardia Bilateral inguinal hernia HLD (hyperlipidemia) BPPV (benign paroxysmal positional vertigo) Surgical History History of surgery S/P transurethral resection of prostate History of inguinal hernia repair Family History Father Diabetes Hypertension Mother Lung cancer Sister Cancer of kidney Lung cancer Sister Breast cancer Social History (Updated 12/03/23 @ 16:03 by Ruslan Pope PA-C) Housing: House Alcohol intake: never Patient Tobacco Use Status: Former Tobacco user Tobacco use type: Cigarette e-Cigarette/Vaping Use: Never Used Current occupational status: employed Current occupation: [employer] Cognitive needs: No Hearing needs: No Vision needs: No Questionnaire PHQ-9 Over the last 2 weeks, how often have you been bothered by any of the following problems? 1. Little interest or pleasure in doing things: not at all 2. Feeling down, depressed, or hopeless: not at all 3. Trouble falling or staying asleep, or sleeping too much: not at all 4. Feeling tired or having little energy: not at all 5. Poor appetite or overeating: not at all 6. Feeling bad about yourself - or that you are a failure or have let yourself or your family down: not at all 7. Trouble concentrating on things, such as reading the newspaper or watching television: not at all 8. Moving or speaking so slowly that other people could have noticed. Or the opposite - being so fidgety or restless that you have been moving around a lot more than usual: not at all 9. Thoughts that you would be better off or of hurting yourself in some way: not at all Total score: 0 Depression Screening Interpretation: Negative Depression Screening Done: Yes 85139 - PHQ-9 Billing: Yes Source: Developed by Drs. Trenton Carey, Deirdre Casillas, Eris Martin and colleagues, with an educational alexis from [employer]. Thrive Questionnaire Date Thrive assessed: 12/03/23 I am a: Patient What is your living situation today?: I have a steady place to live Within the past 12 months, did the food you bought not last and you didn't have the money to get more?: Never true Within the past 12 months, did you worry whether your food would run out before you got money to buy more?: Never true Do you have trouble paying for medicines?: No Do you have trouble getting transportation to medical appointments?: No Do you have trouble paying your heating and electricity bill?: No Do you have trouble taking care of your child, family member or friend?: No Do you have trouble with day-to-day activities such as bathing, preparing meals, shopping, managing finances, etc.?: No Are you currently unemployed and looking for a job?: No Are you interested in more education?: No Please select the resources that you would like help with: None THRIVE Score: 0 AUDIT C Alcohol Use Questionnaire (AUDIT-C) 1. How often do you have a drink containing alcohol?: Never 3. How often do you have six or more drinks on one occasion?: Never Total Score: 0 Score Reviewed/Action Taken: Yes JOHNNIE-7 AMB Questionnaire JOHNNIE-7 Date JOHNNIE - 7 assessed: 12/03/23 Feeling nervous, anxious, or on edge: 0 = Not at all Not being able to stop or control worryin = Not at all Worrying too much about different things: 0 = Not at all Trouble relaxin = Not at all Being so restless that it is hard to sit still: 0 = Not at all Becoming easily annoyed or irritable: 0 = Not at all Feeling afraid as if something awful might happen: 0 = Not at all Total JOHNNIE-7 score (0-4 normal; 5-9 mild; 10-14 moderate; 15-21 severe): 0 Source: Developed by Drs. Trenton Carey, Deirdre Casillas, Eris Martin and colleagues, with an educational alexis from [employer]. JOHNNIE-7 Assessment Billing JOHNNIE-7 Assessment Tool: JOHNNIE-7 Assessment 05873 Review of Systems Const Denies body aches, Denies chills, Denies excessive sweating, Denies fatigue, Denies fever(s) and Denies headache(s) Eyes Denies blurry vision ENT Denies dysphagia, Denies vertigo, Denies dizziness, Denies headache(s), Denies hearing loss and Denies tinnitus Card Denies chest pain, Denies chest pain with activity, Denies syncope, Denies irregular heart rhythm and Denies dyspnea Resp Denies chest congestion, Denies cough, Denies hemoptysis, Denies dyspnea and Denies wheezing GI Denies abdominal pain, Denies melena, Denies hematochezia, Denies coffee ground emesis, Denies dysphagia, Denies diarrhea, Denies nausea and Denies vomiting Denies difficulty urinating, Denies dysuria, Denies urinary frequency, Denies urinary hesitancy and Denies urinary urgency Musc Denies arthralgias, Denies limited range of motion, Denies muscle cramps and Denies muscle weakness Skin/Breast Denies rash and Denies skin ulcer Neuro Denies Abnormal speech present, Denies confusion, Denies vertigo, Denies dizziness, Denies syncope, Denies headache(s), Denies memory loss and Denies seizure-like activity Psych Denies anxiety, Denies confusion, Denies depression, Denies memory loss, Denies panic attacks and Denies paranoia Endo Denies excessive sweating, Denies fatigue, Denies flushing, Denies polydipsia and Denies polyuria Aller/Immun Denies wheezing Physical exam (Primary Care) Vital Signs: Last Vital Signs Pulse 62 12/03/23 15:35 BP 110/72 12/03/23 15:35 Pulse Ox 98 12/03/23 15:35 Oxygen Delivery Method Room Air 12/03/23 15:35 BMI result Body Mass Index 21.9 Tobacco/Smoking Status: Tobacco use Status Tobacco use date assessed 12/03/23 12/03/23 15:36 Patient Tobacco Use Status Former Tobacco user 12/03/23 16:03 Tobacco use type Cigarette 12/03/23 16:03 e-Cigarette/Vaping Use Never Used 12/03/23 16:03 PHQ-9: PHQ-9 Score PHQ-9: Total score 0 12/03/23 16:02 Depression Screening Interpretation: Negative Thrive Assessment: Date of Thrive Assessment Date Thrive assessed 12/03/23 12/03/23 15:36 Const General: cooperative, comfortable, no acute distress, alert and awake; No confusion Orientation/consciousness: oriented to person, oriented to place, patient oriented x3 and No confusion HENMT Head: Yes normocephalic Ears: external ears normal and TM's normal bilaterally Face and sinus: No sinus tenderness Mouth: Normal oral and palatal mucosa present and tongue normal Teeth and gingiva: dentition normal and gingiva normal Throat: Yes posterior oropharynx normal, Yes tonsils normal and Yes uvula midline Eyes Conjunctivae: conjunctivae normal Sclerae: sclerae normal Pupils: Equal, round and reactive pupils present EOM: EOMs intact bilaterally Direct Ophthalmoscopy: No no photophobia Neck Neck: Yes no lymphadenopathy, No tender and Yes no JVD Thyroid: Thyroid normal Carotids: no bruits Chest Chest palpation & inspection: no tenderness Resp Effort & Inspection: normal respiratory effort, no audible wheezes, not labored and no stridor Auscultation: no crackles, no rales, no rhonchi and no wheezes Cardio Jugular venous distension: no JVD Rate: regular rate, not bradycardic and not tachycardic Rhythm: regular rhythm Bruits: no carotid bruits Peripheral pulses: Peripheral pulses 2+ throughout GI Inspection: Yes normal to inspection, No abdominal wall ecchymosis and No visible herniation Palpation (GI): Soft to palpation, nontender, no guarding, not rigid and No hepatosplenomegaly present Auscultation: normoactive bowel sounds General: Yes no CVA tenderness Back/Spine/Pelvis Back: no CVA tenderness and No back tenderness Cervical Spine: cervical ROM normal Thoracic/Lumbar Spine: thoracic and lumbar spine normal to inspection, straight leg raise negative bilaterally, No thoraco-lumbar ROM limited and No lumbar spinal tenderness Skin Lesions: no lesions Rashes: no rashes Wounds: no wounds Neuro General: oriented to person, oriented to place, patient oriented x3, CN's II-XI intact bilaterally and No confusion Cranial nerves: Yes Equal, round and reactive pupils present and Yes Normal accommodation reflex present Cognition (Neuro): normal cognition Speech: No Abnormal speech present Gait exam (Neuro): Normal gait present Motor exam (neuro): 5/5 motor strength present throughout Extrem Right upper extremity: full ROM; no cyanosis Left upper extremity: full ROM; no cyanosis Right lower extremity: no edema Left lower extremity: no edema Psych Appearance: grossly normal Mental Status: mental status grossly normal Affect: normal affect Attitude: cooperative Thought process: Normal thought process present Office Procedures Flu Questionnaire Does the patient have a severe egg allergy?: No Does the patient have severe life threatening allergies?: No Does the patient have a fever or illness today?: No Has the patient ever had Guillain-Grapevine Syndrome?: No Has the patient ever had any past reaction to a flu shot?: No Immunizations flu vacc [id number] 6mos up(PF) 60 mcg(15 mcgx4)/0.5 mL IM syringe Performing Provider: Ruslan Pope PA-C [facility] Administered by: GUSTAVO Turner on 12/03/23 15:53 Dose Route Admin Location Dispensed Lot Number Expiration Date NDC Etl Software Engineer 0.5 mL IM Left Deltoid 0.5 mL [id number] 05/09/24 88851-038-76 [employer] VIS Given Date VIS Provided VIS Publication Date 12/03/23 Single Vaccine 21 Eligibility Eligibility Date Funding Source Not [facility] Eligible 12/03/23 Private Assessment and Plan Assessment & Plan (1) Annual physical exam: Code(s): Z00.00 - Encounter for general adult medical examination without abnormal findings (2) Screening for diabetes mellitus (DM): Code(s): Z13.1 - Encounter for screening for diabetes mellitus (3) Insomnia: Code(s): G47.00 - Insomnia, unspecified Qualifiers: Insomnia type: unspecified Qualified Code(s): G47.00 - Insomnia, unspecified Plan: As per HPI patient continues to have trouble staying asleep throughout the night. Has tried many different sleeping aids though have been ineffective. He has not interested in any prescription sleeping aids due to fears of side effects. (4) HLD (hyperlipidemia): Comment: diet control Code(s): E78.5 - Hyperlipidemia, unspecified Qualifiers: Hyperlipidemia type: mixed hyperlipidemia Qualified Code(s): E78.2 - Mixed hyperlipidemia Plan: Has a history of borderline high cholesterol panel. Will continue to follow fasting lipids. Goal LDL is to be below 160 Orders: Orders Influenza [id number] Immunization 12/03/23 Z23 - Encounter for immunization Complete Blood Count no Diff Today D64.9 - Anemia, unspecified Comprehensive [place]. Panel Fast Today Z13.1 - Encounter for screening for diabetes mellitus Lipid Panel Today E78.2 - Mixed hyperlipidemia Prostate Specific Antigen Scr Today Z12.5 - Encounter for screening for malignant neoplasm of prostate, Z13.1 - Encounter for screening for diabetes mellitus Coding Level of Care Code Est Pt Prev Care >65y(78816) Diagnoses Annual physical exam Z00.00 Screening for diabetes mellitus (DM) Z13.1 Insomnia, unspecified type G47.00 Insomnia type: unspecified Mixed hyperlipidemia E78.2 Hyperlipidemia type: mixed hyperlipidemia Additional Codes JOHNNIE-7 Assessment Billing - JOHNNIE-7 Assessment Tool: JOHNNIE-7 Assessment [id number] ([id number])
== END 2023-12-03 16:14 | disposition home or self-care (01) ==
PROVIDERS: PCP Physician Assistant; Visit Provider Physician Assistant
DX: Z23 Encounter for immunization (principal)
CPT/HCPCS: 90471; 90686; 99397

== ENCOUNTER 2023-12-17 06:13 | Outpatient (REF) | payer BC, SELFPAY ==
[2023-12-17 11:47] LABS: Hematocrit 43.6 % (42.0-52.0); Hemoglobin 14.5 g/dl (14.0-18.0); Mean Corpuscular HGB Conc 33.3 g/dl (31.0-36.0); Mean Corpuscular Hemoglobin 28.4 pg (27.0-33.0); Mean Corpuscular Volume 85.3 fL (80.0-98.0); Platelet Count 255 X10*3/uL (160-400); Red Blood Count 5.11 X10*6/uL (4.60-5.80); Red Cell Distribution Width 14.5 % (11.0-16.0); White Blood Count 5.1 X10*3/uL (4.8-10.8)
[2023-12-17 12:52] LABS: Prostate Specific Antigen Scr 0.91 ng/mL (<0.05-4.0)
[2023-12-17 13:03] LABS: Alanine Aminotransferase 12 U/L (0-40); Alkaline Phosphatase 58 U/L (39-117); Anion Gap 10 (12-20); Aspartate Amino Transferase 17 U/L (5-37); Bilirubin Total 0.5 mg/dL (0.0-1.0); Blood Urea Nitrogen 21 mg/dL (9-16); Calcium 9.2 mg/dL (8.4-10.2); Carbon Dioxide 28 mmol/L (22-29); Chloride 106 mmol/L (96-108); Cholesterol 187 mg/dL (<200); Estimated Glomerular Filt Rate > 60; Glucose Fasting 81 mg/dL (60-99); HDL Cholesterol 43 mg/dL (>40); LDL Cholesterol Calculated 132 mg/dL (<100); Potassium 4.2 mmol/L (3.3-5.1); Sodium 140 mmol/L (135-145); Total Protein 6.7 g/dL (6.5-8.0); Triglycerides 60 mg/dL (<150)
== END 2023-12-17 06:14 | disposition home or self-care (01) ==
LOC: HO.HMGCLDS 06:13
PROVIDERS: PCP Physician Assistant; Visit Provider Physician Assistant
DX: Z13.1 Encounter for screening for diabetes mellitus (principal); Z12.5 Encounter for screening for malignant neoplasm of prostate; D64.9 Anemia, unspecified; E78.2 Mixed hyperlipidemia
CPT/HCPCS: 36415; 80053; 80061; 84153; 85027

== ENCOUNTER 2025-01-05 14:14 | Outpatient (AMB) | payer OTHER, SELFPAY ==
[2025-01-05 15:02] VITALS: BP 118/62; PULSE 71; O2SAT 97; BMI 22.2
--- NOTE | 2025-01-05 15:02 | MHC.PC.OV ---
Vital Signs 01/05/25 15:02 Height 5 ft 7 in Weight 142 lb BMI 22.2 BP 118/62 Blood Pressure Location Lt brachial Position Sitting Pulse 71 Pulse Source Pulse Oximeter Pulse Oximetry (%) 97 Oxygen Delivery Method Room Air Intake Visit Reasons: pe Allergies No Known Allergies [No Known Allergies*] Allergy (Verified 01/05/25 15:10) Medication List - Last Reconciled 01/05/25 by Ruslan Pope PA-C No Known Home Meds Tobacco use date assessed: 01/05/25 Fall risk assessment: No Falls in past year Last assessed Fall Risk: 01/05/25 Dental Screening Dental Screen Date: 01/05/25 Did you have a dental visit in the last 12 months?: No Did you have a dental problem in the last 6 months where you did not have access to dental care?: No Was dental information given to patient?: No HPI pe HPI Details Patient is a 69-year-old male here today for routine annual physical. Patient has a past medical history significant for insomnia and intermittent episodes of vertigo .. cocnerns--> report left leg knumbness over the last several months. Also experiencing intermittent episodes of hot flashes which has been concerning. He is followed by urologist for a bladder issue and did get biopsy which did not show malignancy. He does have an upcoming appointment for a CT of his kidneys. 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 Did get a MRI of brain several years ago and was followed up at [facility] ear nose and throat. There was no treatment for this. He is willing to repeat brain MRI to evaluate for a pituitary etiology due to patient's more recent history of hot flashes and continued loss of taste and smell. .. insomnia : Continues to have trouble sleeping. Has tried melatonin, hydroxyzine and kwxv-bhn-xdrozzg sleeping aids in the past though are not effective. Has tried CBD and THC though were not effective either. PLAN: Interested in speaking with a sleep specialist. Discussed alternative prescription sleeping a medication though he declines at this time. Not interested in trying another medication to sleep at this time. Colon cancer screening: Had colonoscopy in 2021 which was normal and repeat in 10 years. Vaccines: Up-to-date with COVID vaccine, flu vaccine and tetanus vaccine. Needs pneumonia vaccine, PFSH Medical History Anemia Fatigue Tachycardia Bilateral inguinal hernia HLD (hyperlipidemia) BPPV (benign paroxysmal positional vertigo) Surgical History History of surgery S/P transurethral resection of prostate History of inguinal hernia repair Family History Father Diabetes Hypertension Mother Lung cancer Sister Cancer of kidney Lung cancer Sister Breast cancer Social History (Updated 01/05/25 @ 15:15 by Ruslan Pope PA-C) Housing: House Alcohol intake: never Patient Tobacco Use Status: Former Tobacco user Tobacco use type: Cigarette e-Cigarette/Vaping Use: Never Used Current occupational status: employed and retired Cognitive needs: No Hearing needs: No Vision needs: Yes Questionnaire PHQ-9 Over the last 2 weeks, how often have you been bothered by any of the following problems? 1. Little interest or pleasure in doing things: not at all 2. Feeling down, depressed, or hopeless: not at all 3. Trouble falling or staying asleep, or sleeping too much: nearly every day 4. Feeling tired or having little energy: more than half the days 5. Poor appetite or overeating: not at all 6. Feeling bad about yourself - or that you are a failure or have let yourself or your family down: not at all 7. Trouble concentrating on things, such as reading the newspaper or watching television: not at all 8. Moving or speaking so slowly that other people could have noticed. Or the opposite - being so fidgety or restless that you have been moving around a lot more than usual: not at all 9. Thoughts that you would be better off or of hurting yourself in some way: not at all Total score: 5 Depression Screening Interpretation: Positive Depression Screening Done: Yes 95080 - PHQ-9 Billing: Yes Source: Developed by Drs. Trenton Carey, Deirdre Casillas, Eris Martin and colleagues, with an educational alexis from [employer]. Thrive Questionnaire Date Thrive assessed: 01/05/25 I am a: Patient What is your living situation today?: I have a steady place to live Within the past 12 months, did the food you bought not last and you didn't have the money to get more?: Never true Within the past 12 months, did you worry whether your food would run out before you got money to buy more?: Never true Do you have trouble paying for medicines?: No Do you have trouble getting transportation to medical appointments?: No Do you have trouble paying your heating and electricity bill?: No Do you have trouble taking care of your child, family member or friend?: No Do you have trouble with day-to-day activities such as bathing, preparing meals, shopping, managing finances, etc.?: No Are you currently unemployed and looking for a job?: No Are you interested in more education?: No Please select the resources that you would like help with: None Currently or been in a relationship where the following occur: No concerns reported THRIVE Score: 0 AUDIT C Alcohol Use Questionnaire (AUDIT-C) 1. How often do you have a drink containing alcohol?: Never Total Score: 0 JOHNNIE-7 AMB Questionnaire JOHNNIE-7 Date JOHNNIE - 7 assessed: 01/05/25 Feeling nervous, anxious, or on edge: 0 = Not at all Not being able to stop or control worryin = Not at all Worrying too much about different things: 0 = Not at all Trouble relaxin = Not at all Being so restless that it is hard to sit still: 0 = Not at all Becoming easily annoyed or irritable: 0 = Not at all Feeling afraid as if something awful might happen: 0 = Not at all Total JOHNNIE-7 score (0-4 normal; 5-9 mild; 10-14 moderate; 15-21 severe): 0 Source: Developed by Drs. Trenton Carey, Deirdre Casillas, Eris Martin and colleagues, with an educational alexis from [employer]. JOHNNIE-7 Assessment Billing JOHNNIE-7 Assessment Tool: JOHNNIE-7 Assessment 02227 Review of Systems Const Denies body aches, Denies chills, Denies excessive sweating, Denies fatigue, Denies fever(s) and Denies headache(s) Eyes Denies blurry vision ENT Denies dysphagia, Denies vertigo, Denies dizziness, Denies headache(s), Denies hearing loss and Denies tinnitus Card Denies chest pain, Denies chest pain with activity, Denies syncope, Denies irregular heart rhythm and Denies dyspnea Resp Denies chest congestion, Denies cough, Denies hemoptysis, Denies dyspnea and Denies wheezing GI Denies abdominal pain, Denies melena, Denies hematochezia, Denies coffee ground emesis, Denies dysphagia, Denies diarrhea, Denies nausea and Denies vomiting Denies difficulty urinating, Denies dysuria, Denies urinary frequency, Denies urinary hesitancy and Denies urinary urgency Musc Denies arthralgias, Denies limited range of motion, Denies muscle cramps and Denies muscle weakness Skin/Breast Denies rash and Denies skin ulcer Neuro Denies Abnormal speech present, Denies confusion, Denies vertigo, Denies dizziness, Denies syncope, Denies headache(s), Denies memory loss and Denies seizure-like activity Psych Denies anxiety, Denies confusion, Denies depression, Denies memory loss, Denies panic attacks and Denies paranoia Endo Denies excessive sweating, Denies fatigue, Denies flushing, Denies polydipsia and Denies polyuria Aller/Immun Denies wheezing Physical exam (Primary Care) Vital Signs: Last Vital Signs Pulse 71 01/05/25 15:02 BP 118/62 01/05/25 15:02 Pulse Ox 97 01/05/25 15:02 Oxygen Delivery Method Room Air 01/05/25 15:02 BMI result Body Mass Index 22.2 Tobacco/Smoking Status: Tobacco use Status Tobacco use date assessed 01/05/25 01/05/25 15:06 Patient Tobacco Use Status Former Tobacco user 01/05/25 15:15 Tobacco use type Cigarette 01/05/25 15:15 e-Cigarette/Vaping Use Never Used 01/05/25 15:15 PHQ-9: PHQ-9 Score PHQ-9: Total score 5 01/05/25 15:14 Depression Screening Interpretation: Positive Thrive Assessment: Date of Thrive Assessment Date Thrive assessed 01/05/25 01/05/25 15:06 Currently or been in a relationship where the following occur: No concerns reported Const General: cooperative, comfortable, no acute distress, alert and awake; No confusion Orientation/consciousness: oriented to person, oriented to place, patient oriented x3 and No confusion HENMT Head: Yes normocephalic Ears: external ears normal and TM's normal bilaterally Face and sinus: No sinus tenderness Mouth: Normal oral and palatal mucosa present and tongue normal Teeth and gingiva: dentition normal and gingiva normal Throat: Yes posterior oropharynx normal, Yes tonsils normal and Yes uvula midline Eyes Conjunctivae: conjunctivae normal Sclerae: sclerae normal Pupils: Equal, round and reactive pupils present EOM: EOMs intact bilaterally Direct Ophthalmoscopy: No no photophobia Neck Neck: Yes no lymphadenopathy, No tender and Yes no JVD Thyroid: Thyroid normal Carotids: no bruits Chest Chest palpation & inspection: no tenderness Resp Effort & Inspection: normal respiratory effort, no audible wheezes, not labored and no stridor Auscultation: no crackles, no rales, no rhonchi and no wheezes Cardio Jugular venous distension: no JVD Rate: regular rate, not bradycardic and not tachycardic Rhythm: regular rhythm Bruits: no carotid bruits Peripheral pulses: Peripheral pulses 2+ throughout GI Inspection: Yes normal to inspection, No abdominal wall ecchymosis and No visible herniation Palpation (GI): Soft to palpation, nontender, no guarding, not rigid and No hepatosplenomegaly present Auscultation: normoactive bowel sounds General: Yes no CVA tenderness Back/Spine/Pelvis Back: no CVA tenderness and No back tenderness Cervical Spine: cervical ROM normal Thoracic/Lumbar Spine: thoracic and lumbar spine normal to inspection, straight leg raise negative bilaterally, No thoraco-lumbar ROM limited and No lumbar spinal tenderness Skin Lesions: no lesions Rashes: no rashes Wounds: no wounds Neuro General: oriented to person, oriented to place, patient oriented x3, CN's II-XI intact bilaterally and No confusion Cranial nerves: Yes Equal, round and reactive pupils present and Yes Normal accommodation reflex present Cognition (Neuro): normal cognition Speech: No Abnormal speech present Gait exam (Neuro): Normal gait present Motor exam (neuro): 5/5 motor strength present throughout Extrem Right upper extremity: full ROM; no cyanosis Left upper extremity: full ROM; no cyanosis Right lower extremity: no edema Left lower extremity: no edema Psych Appearance: grossly normal Mental Status: mental status grossly normal Affect: normal affect Attitude: cooperative Thought process: Normal thought process present Coding Level of Care Code Est Pt Prev Care >65y(35421) Diagnoses Annual physical exam Z00.00 Left leg paresthesias R20.2 Mixed hyperlipidemia E78.2 Hyperlipidemia type: mixed hyperlipidemia Hot flashes R23.2 Additional Codes PHQ-9 - 91122 - PHQ-9 Billing: Yes ([id number]) JOHNNIE-7 Assessment Billing - JOHNNIE-7 Assessment Tool: JOHNNIE-7 Assessment 79001 ([id number]) Assessment & Plan Assessment & Plan (1) Annual physical exam: Code(s): Z00.00 - Encounter for general adult medical examination without abnormal findings Category: Medical Plan: As per HPI (2) Left leg paresthesias: Code(s): R20.2 - Paresthesia of skin Category: Medical Plan: Patient has intermittent leg paresthesias. Will send for EMG to evaluate for a neuropathy or nerve impingement lower left leg. Will also get x-ray of lumbar spine to evaluate for any disc height loss signifying a disc herniation. Otherwise patient has new particular lower back pain (3) HLD (hyperlipidemia): Comment: diet control Code(s): E78.5 - Hyperlipidemia, unspecified Category: Medical Qualifiers: Hyperlipidemia type: mixed hyperlipidemia Qualified Code(s): E78.2 - Mixed hyperlipidemia Plan: Patient has a history of hyperlipidemia. Will continue to follow fasting lipids. Will continue with dietary modifications to reduce total cholesterol and LDL. (4) Hot flashes: Code(s): R23.2 - [place] Category: Medical Plan: Unclear etiology to patient's hot flashes. Will check catecholamines, estrogen and testosterone levels. 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 Orders: Orders NE electromyogram (EMG) 01/05/25 R20.2 - Paresthesia of skin Testosterone, Free/Total 01/05/25 R23.2 - [place] Lipid Panel 01/05/25 E78.2 - Mixed hyperlipidemia Estrogen 01/05/25 R23.2 - [place] Complete Blood Count no Diff 01/05/25 E78.2 - Mixed hyperlipidemia Catecholamines, Frac., Plasma 01/05/25 R23.2 - [place] Comprehensive [place]. Panel Fast 01/05/25 E78.2 - Mixed hyperlipidemia XR lumbar spine 4V min 01/05/25 R20.2 - Paresthesia of skin Referrals Sleep Medicine Referral G47.00 - Insomnia, unspecified
--- OUTSIDE RECORDS SUMMARY | 2025-01-05 17:29 | XMS_ITS | Patient Health Record ---
Author Organization [facility] Address [address] [place] [id number] Care Team Providers Care Ambulatory Care Nurse Name Role Phone Ruslan Pope Primary Care Provider Unavailab Austin Whitlock Jr Unavailable REASON FOR REFERRAL No Information MEDICATIONS Medication SIG (Take, Route, Frequency, Duration) Notes Start Date End Date Status Aspir-81 81 MG 1 tablet Orally Once a day Active MiraLax (colon prep) 8.3 ounce (238) grams mixed with Gatorade or Crystal Light orally begin at 5:00 p.m. the day before the procedure for 1 day 04/05/2021 Active IMMUNIZATIONS Vaccine Route Administration Date Status Comme nts Influenza Unknown 08/30/2020 Administered SOCIAL HISTORY Sex Assigned At : Social History Observation Description Sex Assigned At Unknown PROBLEMS Problem Type ICD Code Onset Dates Problem Status W/U Status Risk SNOMED Code Notes Problem Colon cancer screening (Z12.11) Active confirmed 366016729 Problem [facility] current use of aspirin (Z79.82) Active confirmed 562360730 Problem Personal history of colonic polyps (Z86.010) Active confirmed History of polyp of colon (situation) (171293677) Problem Weight loss (R63.4) Active confirmed 110468799 Problem Long-term use of aspirin therapy (Z79.82) Active confirmed 982713362 PLAN OF TREATMENT Pending Test Test Name Order Date COLONOSCOPY REMOVAL OF LESION BY HOT BIO PSY OR CAUTERY 09/06/2011 Future Test Test Name Order Date COLONOSCOPY 08/17/2015 COLONOSCOPY 04/05/2021 Insurance Providers Payer Name Payer Address Payer Phone Subscriber Number Group Number Insured Name Patient Relationship to Insured Coverage Start Date Coverage End Date [employer] [address] [place], [place] [address] [id number] JOVANA AVILA Self - patient is the insured MEDICAL (GENERAL) HISTORY Medical History History ICD Code elevated cholesterol with diet control Surgical History Surgery Date(Month/Year) bilateral inguinal hernia repairs
== END 2025-01-05 15:37 | disposition home or self-care (01) ==
PROVIDERS: PCP Physician Assistant; Visit Provider Physician Assistant
DX: Z00.00 Encounter for general adult medical examination without abnormal findings (principal); R20.2 Paresthesia of skin; E78.2 Mixed hyperlipidemia; R23.2 Flushing

== ENCOUNTER → 2025-01-05 14:14 | Outpatient (BNVA) | payer OTHER, SELFPAY | PROVIDERS: PCP Physician Assistant; Visit Provider Physician Assistant | DX: Z00.00 Encounter for general adult medical examination without abnormal findings (principal); R20.2 Paresthesia of skin; E78.2 Mixed hyperlipidemia; R23.2 Flushing | CPT/HCPCS: 96127 ==

== ENCOUNTER 2025-01-06 09:21 | Outpatient (REF) | payer OTHER, SELFPAY ==
--- NOTE | ~2025-01-06 | XR_ITS ---
EXAMINATION: XR LUMBOSACRAL SPINE CLINICAL INFORMATION: R20.2 - Paresthesia of skin COMPARISON: No priors. TECHNIQUE: 6 views of the lumbar spine, inclusive of bilateral oblique views, were obtained. FINDINGS: No scoliosis. Normal lordosis. There is a 3 mm degenerative retrolisthesis of L4 on L5. Sagittal alignment is otherwise anatomic. No fractures, compression deformities, or suspicious bone lesions. Moderate to severe disc degeneration L4-5 and L5-S1 with disc vacuum phenomenon. There is otherwise mild disc degeneration. There is mild to moderate facet degeneration most notable L4-S1. Oblique views demonstrate no evidence of pars defects. Mild arthritis in the bilateral SI joints. Sacrum appears intact. There is mild vascular calcification in the soft tissues. XR/XR lumbar spine 4V min IMPRESSION: 1. No acute findings lumbar spine. 2. Moderate spondylosis, most significant at L5-S1. Electronically signed by: Arvind Roger MD 01/06/2025 10:47 AM SON[facility]O
[2025-01-06 09:58] LABS: Hemoglobin 15.1 g/dl (14.0-18.0); Mean Corpuscular HGB Conc 33.6 g/dl (31.0-36.0); Mean Corpuscular Hemoglobin 28.3 pg (27.0-33.0); Mean Corpuscular Volume 84.3 fL (80.0-98.0); Mean Platelet Volume 10.5 fL (9.4-12.4); Platelet Count 239 X10*3/uL (160-400); Red Blood Count 5.34 X10*6/uL (4.60-5.80); White Blood Count 5.3 X10*3/uL (4.8-10.8)
--- OUTSIDE RECORDS SUMMARY | 2025-01-06 10:30 | XMS_ITS | Patient Health Record ---
Author Organization [facility] Address [address] [place] [id number] Care Team Providers Care Clearance Representative Name Role Phone Ruslan Pope Primary Care Provider Unavailab Austin Whitlock Jr Unavailable [phone] REASON FOR REFERRAL No Information MEDICATIONS Medication [...] Problem Colon cancer screening (Z12.11) Active confirmed 988635807 Problem shelter current use of aspirin (Z79.82) Active confirmed 604763915 Problem Personal history of colonic polyps (Z86.010) Active confirmed History of polyp of colon (situation) (179358076) Problem Weight loss (R63.4) Active confirmed 130886641 Problem Long-term use of aspirin therapy (Z79.82) Active confirmed 354252955 PLAN OF TREATMENT Pending Test Test Name Order Date COLONOSCOPY REMOVAL OF LESION BY HOT BIO PSY OR CAUTERY 09/06/2011 Future Test Test Name Order Date COLONOSCOPY 08/17/2015 COLONOSCOPY 04/05/2021 Insurance Providers Payer Name Payer Address Payer Phone Subscriber Number Group Number Insured Name Patient Relationship to Insured Coverage Start Date Coverage End Date [employer] [address] [place], [place] [address] [phone] [id number] JOVANA AVILA Self - patient is the insured MEDICAL (GENERAL) HISTORY Medical History History ICD Code elevated cholesterol with diet control Surgical History Surgery Date(Month/Year) bilateral inguinal hernia repairs
[2025-01-06 10:52] LABS: Alanine Aminotransferase 15 U/L (0-40); Albumin Level 4.1 g/dL (3.5-5.0); Alkaline Phosphatase 59 U/L (39-117); Anion Gap 13 (12-20); Aspartate Amino Transferase 23 U/L (5-37); Bilirubin Total 0.5 mg/dL (0.0-1.0); Blood Urea Nitrogen 16 mg/dL (9-16); Calcium 9.2 mg/dL (8.4-10.2); Carbon Dioxide 25 mmol/L (22-29); Chloride 107 mmol/L (96-108); Cholesterol 135 mg/dL (<200); Estimated Glomerular Filt Rate > 60; Glucose Fasting 82 mg/dL (60-99); HDL Cholesterol 26 mg/dL (>40); LDL Cholesterol Calculated 93 mg/dL (<100); Sodium 141 mmol/L (135-145); Triglycerides 83 mg/dL (<150)
[2025-01-11 17:53] LABS: Estrogen 65 pg/mL (< OR = 404)
[2025-01-13 06:38] LABS: Testosterone, Free 40.3 pg/mL (35.0-155.0); Testosterone, Total 328 ng/dL (250-1100)
[2025-01-20 21:08] LABS: Catecholamine Frac, Total 920 pg/mL
== END 2025-01-06 09:22 | disposition home or self-care (01) ==
LOC: HO.LAB 09:21
PROVIDERS: PCP Physician Assistant; Visit Provider Physician Assistant
DX: R23.2 Flushing (principal); E78.2 Mixed hyperlipidemia; R20.2 Paresthesia of skin
CPT/HCPCS: 36415; 72110; 80053; 80061; 82384; 82672; 84402; 84403; 85027

== ENCOUNTER → 2025-01-06 09:40 | Outpatient (BNV) | payer OTHER, SELFPAY | PROVIDERS: PCP Physician Assistant; Visit Provider Radiology Diagnostic Radiology | DX: M47.896 Other spondylosis, lumbar region (principal); R20.0 Anesthesia of skin | CPT/HCPCS: 72110 ==